=== PATIENT | female | born 1950 | race Caucasian/White ===

== ENCOUNTER → 2016-11-24 | Outpatient (CLI) | payer MEDICARE, BC | LOC: MC.RAD 07:40 | DX: Z12.31 Encounter for screening mammogram for malignant neoplasm of breast (principal) ==

== ENCOUNTER → 2017-02-03 | Outpatient (CLI) | payer MEDICARE, BC | LOC: COL.RAD 14:25 | DX: M25.552 Pain in left hip (principal) | CPT/HCPCS: J3301; Q9967 ==

== ENCOUNTER → 2017-05-26 | Outpatient (CLI) | payer MEDICARE, BC | LOC: COL.RAD 14:20 | DX: M25.552 Pain in left hip (principal) | CPT/HCPCS: J3301; Q9967 ==

== ENCOUNTER → 2017-09-08 | Outpatient (CLI) | payer MEDICARE, BC | LOC: COL.LAB 12:08 | DX: Z01.812 Encounter for preprocedural laboratory examination (principal); M25.852 Other specified joint disorders, left hip ==

== ENCOUNTER → 2018-04-16 | Outpatient (CLI) | payer MEDICARE, BC | LOC: MC.RAD 07:37 | DX: Z12.31 Encounter for screening mammogram for malignant neoplasm of breast (principal) ==

== ENCOUNTER → 2019-05-05 | Outpatient (CLI) | payer MEDICARE, BC | LOC: MC.RAD 11:39 | DX: Z12.31 Encounter for screening mammogram for malignant neoplasm of breast (principal) ==

== ENCOUNTER → 2020-05-07 | Outpatient (CLI) | payer MEDICARE, BC | LOC: MC.RAD 09:41 | DX: Z12.31 Encounter for screening mammogram for malignant neoplasm of breast (principal); N64.89 Other specified disorders of breast ==

== ENCOUNTER → 2020-05-14 | Outpatient (CLI) | payer MEDICARE, BC | LOC: MC.RAD 07:29 | DX: N64.89 Other specified disorders of breast (principal) ==

== ENCOUNTER → 2021-05-17 | Outpatient (CLI) | payer MEDICARE, BC | LOC: MC.RAD 10:10 | DX: Z12.31 Encounter for screening mammogram for malignant neoplasm of breast (principal) ==

== ENCOUNTER → 2021-05-24 | Outpatient (CLI) | payer MEDICARE, BC | LOC: MC.RAD 05-23 13:00 | DX: N63.10 Unspecified lump in the right breast, unspecified quadrant (principal) ==

== ENCOUNTER → 2021-06-04 | Outpatient (CLI) | payer MEDICARE, BC | LOC: MC.RAD 07:54 | DX: R93.89 Abnormal findings on diagnostic imaging of other specified body structures (principal); Z98.82 Breast implant status ==

== ENCOUNTER → 2023-07-15 | Outpatient (CLI) | payer MEDICARE, BC | LOC: MC.RAD 07:59 | DX: Z12.31 Encounter for screening mammogram for malignant neoplasm of breast (principal) ==

== ENCOUNTER → 2023-10-14 | Outpatient (CLI) | payer MEDICARE, BC | LOC: DIA.ED 09:50 | DX: E11.9 Type 2 diabetes mellitus without complications (principal); E78.5 Hyperlipidemia, unspecified; I10 Essential (primary) hypertension ==